=== PATIENT | male | born 1955 | race Caucasian/White ===

== ENCOUNTER 2017-02-12 08:07 | Outpatient (CLI) | payer MEDICAID | END 2017-02-12 08:08 | disposition home or self-care (01) | DX: I10 Essential (primary) hypertension (principal); E78.5 Hyperlipidemia, unspecified ==

== ENCOUNTER 2018-12-23 08:32 | Outpatient (CLI) | payer MEDICAID ==
[2018-12-23 08:54] LABS: BASOPHILS % (AUTO) 0.6 %; EOSINOPHILS # (AUTO) 0.2 10^3/uL (0.0-0.7); EOSINOPHILS % (AUTO) 2.3 %; HGB - HEMOGLOBIN 12.8 g/dL (14.0-18.0); LYMPHOCYTES % (AUTO) 25.7 %; MEAN CORPUSCULAR HEMOGLOBIN 33.8 pg (27.0-31.0); MEAN CORPUSCULAR VOLUME 96.6 fL (80.0-94.0); MONOCYTES # (AUTO) 0.7 10^3/uL (0.0-1.0); MONOCYTES % (AUTO) 9.2 %; NEUTROPHILS # (AUTO) 4.7 10^3/uL (1.5-6.6); NEUTROPHILS % (AUTO) 62.2 %; PLT - PLATELET COUNT 235 10^3/uL (130-450); RED BLOOD COUNT 3.78 10^6/uL (4.70-6.10); RED CELL DISTRIBUTION WIDTH 12.4 % (12.0-15.0); WHITE BLOOD COUNT 7.6 x10^3/uL (4.8-10.8)
[2018-12-23 09:16] LABS: ALBUMIN 4.5 g/dL (3.2-5.5); ALBUMIN/GLOBULIN RATIO 1.6 (1.0-2.2); ALKALINE PHOSPHATASE 37 IU/L (42-121); ALT ALANINE AMINOTRANSFERASE 20 IU/L (10-60); AST ASPARTATE AMINOTRANSFERASE 25 IU/L (10-42); BUN - BLOOD UREA NITROGEN 11 mg/dL (6-20); CALCIUM 9.4 mg/dL (8.5-10.3); CARBON DIOXIDE - CO2 27 mmol/L (21-32); CHLORIDE 98 mmol/L (101-111); CHOL/HDL RATIO 2.8 (<5.0); CHOLESTEROL 197 mg/dL; CREATININE 0.8 mg/dL (0.6-1.2); GFR - MDRD 97 (>89); GLUCOSE 112 mg/dL (70-100); HDL CHOLESTEROL 70 mg/dL; LDL CHOLESTEROL,CALCULATED 111 mg/dL; LDL/HDL RATIO 1.6 (<3.6); SODIUM 134 mmol/L (135-145); TOTAL PROTEIN 7.3 g/dL (6.7-8.2); VLDL CHOLESTEROL 16 mg/dL
[2018-12-23 09:39] LABS: THYROID STIMULATING HORMONE 1.73 uIU/mL (0.34-5.60)
== END 2018-12-23 08:33 | disposition home or self-care (01) ==
LOC: LAB 08:32
PROVIDERS: ATTEND Nurse Practitioner Family
DX: I10 Essential (primary) hypertension (principal); E78.5 Hyperlipidemia, unspecified; D64.9 Anemia, unspecified
CPT/HCPCS: 36415; 80053; 80061; 82607; 82746; 83721; 84443; 85025

== ENCOUNTER 2022-01-12 13:01 | Emergency (ER) | payer MEDICARE, OTHER ==
--- NOTE | 2022-01-12 13:18 | ED Physician Documentation ---
PD HPI ABD PAIN - Stated complaint Stated Complaint: ABD TENDERNESS - Chief complaint Chief Complaint: Abd Pain - History obtained from History obtained from: Patient - History of Present Illness Pain level max: 7 Pain level now: 1 Quality: Aching, Pain Location: LLQ Worsened by: No: Eating Associated symptoms: No: Fever, Nausea, Vomiting, Hematemesis Recently seen: Not recently seen - Additional information Additional information: Patient is a 66-year-old male who presents to the emergency department with intermittent left lower quadrant abdominal pain over the past 3 to 4 days. Pain increased this morning so he went to the walk-in clinic. They evaluated him and sent him here for further evaluation. Described as an aching pain in the left lower quadrant. Nonradiating. Has never had a colonoscopy. No nausea or vomiting, feels like he has had some constipation, no diarrhea. No blood in the stool. No fevers. No chills. Review of Systems Constitutional: denies: Fever, Chills Nose: denies: Rhinorrhea / runny nose, Congestion Respiratory: denies: Cough GI: denies: Nausea, Vomiting, Diarrhea Skin: denies: Rash Musculoskeletal: denies: Neck pain, Back pain Neurologic: denies: Headache PD PAST MEDICAL HISTORY - Past Medical History Past Medical History: Yes Cardiovascular: Hypertension - Past Surgical History Past Surgical History: Yes Ortho: Other (Knee surgery) - Present Medications Home Medications: Ambulatory Orders Medication Instructions Recorded Confirmed Amox/Clav 875/125 [Augmentin] 1 each PO Q8H #30 tablet 01/12/22 - Allergies Allergies/Adverse Reactions: Allergies Allergy/AdvReac Type Severity Reaction Status Date / Time No Known Drug Allergies Allergy Verified 01/12/22 13:03 - Living Situation Living Situation: reports: With family Living Arrangement: reports: At home PD ED PE NORMAL - Vitals Vital signs reviewed: Yes - General General: Alert and oriented X 3, No acute distress - HEENT HEENT: Moist mucous membranes - Neck Neck: Supple, no meningeal sign - Cardiac Cardiac: RRR, Strong equal pulses - Respiratory Respiratory: No respiratory distress, Clear bilaterally - Abdomen Abdomen: Soft, Non tender, Other (Mild tenderness to palpation left lower quadrant. No peritoneal signs.) - Derm Derm: Warm and dry - Neuro Neuro: Alert and oriented X 3 - Psych Psych: Normal mood, Normal affect Results - Vitals Vitals: Vital Signs - 24 hr 01/12/22 13:03 Temperature 36.5 C Heart Rate 84 Respiratory 16 Rate Blood Pressure 170/86 H O2 Saturation 99 Oxygen O2 Source Room air - Labs Labs: Laboratory Tests 01/12/22 01/12/22 13:12 13:12 WBC 15.9 H RBC 3.90 L Hgb 13.3 L Hct 38.4 L MCV 98.5 H MCH 34.1 H MCHC 34.6 RDW 11.8 L Plt Count 237 MPV 8.8 Neut # (Auto) 13.0 H Lymph # (Auto) 1.3 L [place] # (Auto) 1.5 H Eos # (Auto) 0.0 Baso # (Auto) 0.0 Absolute Nucleated RBC 0.00 Nucleated RBC % 0.0 Sodium 131 L Potassium 4.0 Chloride 96 L Carbon Dioxide 24 Anion Gap 11.0 BUN 11 Creatinine 0.7 Estimated GFR (MDRD) 112 Glucose 123 H Calcium 9.2 Total Bilirubin 1.1 H AST 21 ALT 19 Alkaline Phosphatase 40 L Total Protein 7.5 Albumin 4.4 Globulin 3.1 Albumin/Globulin Ratio 1.4 Lipase 34 - Rads (name of study) CT abdomen pelvis Radiology: Final report received, EMP read contemporaneously, See rad report PD MEDICAL DECISION MAKING - ED course Complexity details: reviewed results, re-evaluated patient, considered differential, d/w patient ED course: CT abdomen pelvis shows a moderate distal colonic diverticulitis without perforation or abscess. Patient does have a leukocytosis. Discussed risks and benefits of antibiotics, will place on antibiotics at this time. Patient is well-appearing, nontoxic. Afebrile. Declines pain medication for home. Patient will follow up with his doctor for colonoscopy after completion of treatment. Patient counseled regarding signs and symptoms for which I believe and urgent re-evaluation would be necessary. Patient with good understanding of and agreement to plan and is comfortable going home at this time This document was made in part using voice recognition software. While efforts are made to proofread this document, sound alike and grammatical errors may occ ur. CT Abdomen and pelvis IMPRESSION: Moderate distal colonic diverticulitis is seen, without juancarlos findings of perforation or abscess. A colonoscopy is recommended for further evaluation, following treatment of the patient's current clinical episode, for evaluation of a potential underlying mass. Incidental note is made of: Focal fatty infiltration Simple appearing left renal cysts Bilateral L5 pars defects Focal L5-S1 degenerative change and grade 1 anterolisthesis Fat-containing left inguinal hernia Departure - Departure Disposition: 01 Home, Self Care Clinical Impression: Diverticulitis Condition: Good Instructions: ED Diverticulitis Follow-Up: Fifi Moreno ARNP [Primary Care Provider] - Within 1 week Prescriptions: Amox/Clav 875/125 [Augmentin] 1 each PO Q8H #30 tablet Comments: Take all antibiotics until gone. You appear to have diverticulitis on CT scan today. You should have a colonoscopy after completion of treatment. Your doctor can arrange this for you. Your prescriptions were sent to [facility]. CT Abdomen and pelvis
[2022-01-12 13:19] LABS: BASOPHILS % (AUTO) 0.3 %; EOSINOPHILS % (AUTO) 0.2 %; HCT - HEMATOCRIT 38.4 % (42.0-52.0); HGB - HEMOGLOBIN 13.3 g/dL (14.0-18.0); LYMPHOCYTES # (AUTO) 1.3 10^3/uL (1.5-3.5); LYMPHOCYTES % (AUTO) 8.2 %; MEAN CORPUSCULAR HEMOGLOBIN 34.1 pg (27.0-31.0); MEAN CORPUSCULAR HGB CONC 34.6 g/dL (32.0-36.0); MEAN CORPUSCULAR VOLUME 98.5 fL (80.0-94.0); MEAN PLATELET VOLUME 8.8 fL (7.4-11.4); MONOCYTES # (AUTO) 1.5 10^3/uL (0.0-1.0); MONOCYTES % (AUTO) 9.3 %; NEUTROPHILS % (AUTO) 81.6 %; PLT - PLATELET COUNT 237 10^3/uL (130-450); RED CELL DISTRIBUTION WIDTH 11.8 % (12.0-15.0); WHITE BLOOD COUNT 15.9 x10^3/uL (4.8-10.8)
[2022-01-12 13:31] LABS: ALBUMIN 4.4 g/dL (3.2-5.5); ALBUMIN/GLOBULIN RATIO 1.4 (1.0-2.2); BILIRUBIN,TOTAL 1.1 mg/dL (0.2-1.0); CALCIUM 9.2 mg/dL (8.5-10.3); CREATININE 0.7 mg/dL (0.6-1.2); TOTAL PROTEIN 7.5 g/dL (6.7-8.2)
[2022-01-12] MEDS ORDERED: IOVERSOL 320 100 ML VIAL IVP ONE ×2 (13:49→14:02)
--- NOTE | 2022-01-12 14:37 | CT Report ---
PROCEDURE: Abdomen/Pelvis W INDICATIONS: LLQ abd pain CONTRAST: IV CONTRAST: Optiray 320 ml: 100 PO CONTRAST: *NO PO CONTRAST TECHNIQUE: After the administration of IV contrast, 5 mm thick sections acquired from the diaphragms to the symp hysis. 5 mm thick coronal and sagittal reformats were acquired. For radiation dose reduction, the f ollowing was used: automated exposure control, adjustment of mA and/or kV according to patient size. COMPARISON: None. FINDINGS: Image quality: Excellent. ABDOMEN: Lung bases: Lung bases are clear. Heart size is normal. Solid organs: Incidental note is made of focal fatty infiltration adjacent to the falciform ligament , which is not regarded to the frankly pathologic. The liver demonstrates normal size and overall d ensity. No liver lesions are detected. The spleen demonstrates normal size and demonstrates no suspicious lesions. Gallbladder wall does not appear thickened. Biliary system is non dilated. Pancreas enhances norm ally. No adrenal nodules. Kidneys demonstrate normal size and enhancement, without hydronephrosis. Simple appearing left renal cysts are seen superiorly, which measure up to 3.8 cm. Peritoneum and bowel: Focal wall thickening is seen involving the distal ascending colon, with moder ate surrounding inflammatory change. No definite free air or free fluid can be seen. Diverticula form ation can be seen within this region. No definite wall thickening can be seen elsewhere within the colon. No dilated loops of small bowel are seen. No significant gastric abnormality can be seen. Nodes and vessels: No retroperitoneal or mesenteric adenopathy by size criteria. Aorta and inferior vena cava are normal in size. Atherosclerotic calcification is seen. Miscellaneous: No ventral hernias. PELVIS: Genitourinary: Bladder wall thickness is normal. Miscellaneous: No inguinal adenopathy. There is a fat-containing left inguinal hernia present. Bones: No suspicious bony lesions. No vertebral body compression fractures. Bilateral L5 pars defe cts are seen, with associated grade 1 L5-S1 anterolisthesis and focal degenerative change. Milder deg enerative changes are seen elsewhere. IMPRESSION: Moderate distal colonic diverticulitis is seen, without juancarlos findings of perforation or abscess. A colonoscopy is recommended for further evaluation, following treatment of the patient's current cli nical episode, for evaluation of a potential underlying mass. Incidental note is made of: Focal fatty infiltration Simple appearing left renal cysts Bilateral L5 pars defects Focal L5-S1 degenerative change and grade 1 anterolisthesis Fat-containing left inguinal hernia Reviewed by: Johny Champagne MD on 01/12/2022 1:36 PM [employer] Approved by: Johny Champagne MD on 01/12/2022 1:36 PM [employer]UM[employer] Station ID: [id number]
[2022-01-12] MEDS ORDERED: AMOX/CLAV 875 MG/125 MG TABLET PO STA (14:47)
[2022-01-12 15:02] VITALS: BP 172/68
== END 2022-01-12 15:00 | disposition home or self-care (01) ==
LOC: ED 13:01
DX: K57.92 Diverticulitis of intestine, part unspecified, without perforation or abscess without bleeding (principal); I10 Essential (primary) hypertension
CPT/HCPCS: 36415; 74177; 80053; 83690; 85025; 99282; 99284; A9270; Q9967

== ENCOUNTER 2022-08-01 07:02 | Day surgery (SDC) | payer MEDICARE, OTHER ==
[2022-08-01] MEDS ORDERED: LACTATED RINGERS 1,000 ML IV ONE ×2 (07:08→08:06)
[2022-08-01] MEDS ORDERED: PROPOFOL 500 MG/50 ML 500 MG/50 ML VIAL ONE (07:23)
--- NOTE | 2022-08-01 07:43 | ANESTHESIA ---
Pre-Anesthesia VS, & Labs - Diagnosis screening - Procedure colonoscopy Vital Signs: Temp Pulse Resp BP Pulse Ox O2 Flow Rate 36.8 C 88 16 168/74 H 100 08/01/22 07:08 08/01/22 07:08 08/01/22 07:08 08/01/22 07:08 08/01/22 07:08 Height: 5 ft 10 in Weight (kg): 73 kg Body Mass Index: 23.1 BMI Classification: Normal - NPO Other (prep this am) Home Medications and Allergies Home Medications: Ambulatory Orders Lisinopril [Zestril] 30 mg PO DAILY 07/31/22 Lisinopril [Zestril] 30 mg PO DAILY 07/31/22 Allergies/Adverse Reactions: Allergies Allergy/AdvReac Type Severity Reaction Status Date / Time No Known Drug Allergies Allergy Verified 01/12/22 13:03 Anes History & Medical History - Anesthetic History Anesthesia Complications: reports: No previous complications - Medical History Cardiovascular: reports: Hypertension Pulmonary: reports: None Gastrointestinal: reports: None Urinary: reports: None Musculoskeletal: reports: Osteoarthritis, Chronic back pain Endocrine/Autoimmune: reports: None Skin: reports: Psoriasis Smoking Status: Never smoker Psychosocial: reports: Alcohol (4 beers a day) History of Cancer?: No - Surgical History Orthopedic: reports: ACL reconstruction Exam General: Alert, Oriented x3 Dental: WNL Mouth Opening: Greater than 4 Fingerbreadths Neck Mobility: Normal Mallampati classification: II Thyromental Distance: greater than 6 cm Respiratory: Lungs clear Cardiovascular: Regular rate Plan Anesthesia Type: Total IV Consent for Procedure(s) Verified and Reviewed: Yes Code Status: Attempt Resuscitation ASA classification: 2-Mild systemic disease Is this case an emergency?: No
[2022-08-01 08:36] VITALS: BP 135/82
--- NOTE | 2022-08-01 09:56 | ANESTHESIA POST OP EVALUATION ---
Anesthesia Post Eval - Post Anesthesia Eval Vitals: Last Vital Signs Temp 36.5 C 08/01/22 08:06 Pulse 75 08/01/22 08:35 Resp 13 08/01/22 08:35 BP 135/82 H 08/01/22 08:35 Pulse Ox 100 08/01/22 08:35 O2 Flow Rate CV Function Including HR & BP: Stable Pain Control: Satisfactory Nausea & Vomiting: Negative Mental Status: Baseline Respiratory Status: Airway Patent Hydration Status: Satisfactory Anesthesia Complications: None
== END 2022-08-01 07:03 | disposition home or self-care (01) ==
LOC: SDS 07:02
PROVIDERS: ATTEND Surgery
DX: Z12.11 Encounter for screening for malignant neoplasm of colon (principal); K57.30 Diverticulosis of large intestine without perforation or abscess without bleeding; I10 Essential (primary) hypertension
CPT/HCPCS: G0121; J7120

== ENCOUNTER 2022-11-06 08:10 | Outpatient (CLI) | payer MEDICARE, OTHER ==
[2022-11-06 08:35] LABS: BASOPHILS # (AUTO) 0.1 10^3/uL (0.0-0.1); BASOPHILS % (AUTO) 0.8 %; EOSINOPHILS # (AUTO) 0.1 10^3/uL (0.0-0.7); EOSINOPHILS % (AUTO) 2.3 %; HCT - HEMATOCRIT 40.6 % (42.0-52.0); HGB - HEMOGLOBIN 13.6 g/dL (14.0-18.0); LYMPHOCYTES # (AUTO) 1.7 10^3/uL (1.5-3.5); LYMPHOCYTES % (AUTO) 27.6 %; MEAN CORPUSCULAR HEMOGLOBIN 33.4 pg (27.0-31.0); MEAN CORPUSCULAR HGB CONC 33.5 g/dL (32.0-36.0); MEAN CORPUSCULAR VOLUME 99.8 fL (80.0-94.0); MEAN PLATELET VOLUME 8.7 fL (7.4-11.4); MONOCYTES # (AUTO) 0.6 10^3/uL (0.0-1.0); MONOCYTES % (AUTO) 9.9 %; NEUTROPHILS # (AUTO) 3.7 10^3/uL (1.5-6.6); NEUTROPHILS % (AUTO) 59.2 %; PLT - PLATELET COUNT 248 10^3/uL (130-450); RED BLOOD COUNT 4.07 10^6/uL (4.70-6.10); RED CELL DISTRIBUTION WIDTH 11.6 % (12.0-15.0); WHITE BLOOD COUNT 6.2 x10^3/uL (4.8-10.8)
[2022-11-06 08:52] LABS: ALBUMIN 4.6 g/dL (3.2-5.5); ALBUMIN/GLOBULIN RATIO 1.5 (1.0-2.2); ALKALINE PHOSPHATASE 34 IU/L (42-121); ALT ALANINE AMINOTRANSFERASE 20 IU/L (10-60); AST ASPARTATE AMINOTRANSFERASE 24 IU/L (10-42); BILIRUBIN,TOTAL 1.4 mg/dL (0.2-1.0); BUN - BLOOD UREA NITROGEN 9 mg/dL (6-20); CALCIUM 9.4 mg/dL (8.5-10.3); CARBON DIOXIDE - CO2 23 mmol/L (21-32); CHLORIDE 94 mmol/L (101-111); CHOL/HDL RATIO 3.6 (<5.0); CHOLESTEROL 267 mg/dL; CREATININE 0.8 mg/dL (0.6-1.2); GFR - MDRD 96 (>89); GLUCOSE 128 mg/dL (70-100); HDL CHOLESTEROL 75 mg/dL; LDL CHOLESTEROL,CALCULATED 176 mg/dL; LDL/HDL RATIO 2.3 (<3.6); SODIUM 132 mmol/L (135-145); TOTAL PROTEIN 7.6 g/dL (6.7-8.2); TRIGLYCERIDES 82 mg/dL; VLDL CHOLESTEROL 16 mg/dL
[2022-11-06 09:02] LABS: THYROID STIMULATING HORMONE 1.94 uIU/mL (0.34-5.60)
== END 2022-11-06 08:11 | disposition home or self-care (01) ==
LOC: LAB 08:10
PROVIDERS: ATTEND Registered Nurse
DX: I10 Essential (primary) hypertension (principal); E78.5 Hyperlipidemia, unspecified; Z12.5 Encounter for screening for malignant neoplasm of prostate
CPT/HCPCS: 36415; 80053; 80061; 84443; 85025; G0103; 83721; 84153

== ENCOUNTER 2023-12-16 08:22 | Outpatient (CLI) | payer MEDICARE, OTHER ==
[2023-12-16 08:34] LABS: BASOPHILS % (AUTO) 0.7 %; EOSINOPHILS # (AUTO) 0.1 10^3/uL (0.0-0.7); EOSINOPHILS % (AUTO) 2.2 %; HCT - HEMATOCRIT 37.4 % (42.0-52.0); HGB - HEMOGLOBIN 12.4 g/dL (14.0-18.0); LYMPHOCYTES # (AUTO) 1.4 10^3/uL (1.5-3.5); LYMPHOCYTES % (AUTO) 26.8 %; MEAN CORPUSCULAR HEMOGLOBIN 32.4 pg (27.0-31.0); MEAN CORPUSCULAR HGB CONC 33.2 g/dL (32.0-36.0); MEAN CORPUSCULAR VOLUME 97.7 fL (80.0-94.0); MEAN PLATELET VOLUME 8.7 fL (7.4-11.4); MONOCYTES # (AUTO) 0.7 10^3/uL (0.0-1.0); MONOCYTES % (AUTO) 13.7 %; NEUTROPHILS % (AUTO) 56.4 %; PLT - PLATELET COUNT 221 10^3/uL (130-450); RED BLOOD COUNT 3.83 10^6/uL (4.70-6.10); RED CELL DISTRIBUTION WIDTH 11.5 % (12.0-15.0); WHITE BLOOD COUNT 5.3 x10^3/uL (4.8-10.8)
[2023-12-16 08:53] LABS: ALBUMIN 4.7 g/dL (3.2-5.5); ALBUMIN/GLOBULIN RATIO 1.9 (1.0-2.2); ALKALINE PHOSPHATASE 43 IU/L (42-121); ALT ALANINE AMINOTRANSFERASE 18 IU/L (10-60); AST ASPARTATE AMINOTRANSFERASE 21 IU/L (10-42); BILIRUBIN,TOTAL 0.7 mg/dL (0.2-1.0); BUN - BLOOD UREA NITROGEN 12 mg/dL (6-20); CARBON DIOXIDE - CO2 29 mmol/L (21-32); CHLORIDE 98 mmol/L (101-111); CHOLESTEROL 195 mg/dL; CREATININE 0.8 mg/dL (0.6-1.3); GFR - MDRD 96 (>89); GLUCOSE 110 mg/dL (74-104); HDL CHOLESTEROL 65 mg/dL; LDL CHOLESTEROL,CALCULATED 111 mg/dL; LDL/HDL RATIO 1.7 (<3.6); SODIUM 132 mmol/L (135-145); TOTAL PROTEIN 7.2 g/dL (6.4-8.9); TRIGLYCERIDES 94 mg/dL (48-352); VLDL CHOLESTEROL 19 mg/dL
== END 2023-12-16 08:23 | disposition home or self-care (01) ==
LOC: LAB 08:22
PROVIDERS: ATTEND Registered Nurse
DX: E78.5 Hyperlipidemia, unspecified (principal); Z12.5 Encounter for screening for malignant neoplasm of prostate; Z79.899 Other long term (current) drug therapy
CPT/HCPCS: 36415; 80053; 80061; 85025; G0103; 83721; 84153